=== PATIENT | female | born 1970 | race Caucasian/White ===

== ENCOUNTER 2017-09-26 13:43 | Inpatient (IN) | payer OTHER ==
[~2017-09-26] VITALS: Ht 149.9 cm; Wt 70.5 kg
[~2017-09-26 13:43] MED LIST: LIDOCAINE 1% 10 MG/ML, 20 ML MDV INJ ONE; LR 1,000 ML IV.SOLN IV ONE; MIDAZOLAM HCL 5 MG/5 ML VIAL IVP ONE; NS IRRIG SOLN 1000 ML IR ONE; PROPOFOL 200MG/ 20ML VIAL (DIPRIVAN) IV ONE
[2017-09-26 13:54] VITALS: BP_SYST 128
[2017-09-26] MEDS ORDERED: IOHEXOL 100 ML IV ONE (14:44)
[2017-09-26 14:55] LABS: BILIRUBIN,URINE NEGATIVE (NEGATIVE); BLOOD, URINE NEGATIVE (NEGATIVE); CLARITY/URINE CLEAR (CLEAR); COLOR,URINE YELLOW (YELLOW); GLUCOSE,URINE NEGATIVE (NEGATIVE); KETONES,URINE NEGATIVE (NEGATIVE); LEUKOCYTE ESTERASE ,URINE NEGATIVE (NEGATIVE); NITRITE, URINE NEGATIVE (NEGATIVE); PROTEIN URINE NEGATIVE (NEGATIVE); UROBILINOGEN,URINE 0.2 (0.2-1.0)
[2017-09-26 15:08] LABS: BASOPHILS % (AUTO) 0.5 % (0.0-2.0); EOSINOPHILS # (AUTO) 0.2 K/uL (0.0-0.4); EOSINOPHILS % (AUTO) 2.5 % (0.0-4.0); HEMATOCRIT 39.2 % (36-48); HEMOGLOBIN 12.9 g/dL (12.0-16.0); LYMPHOCYTES # (AUTO) 2.6 K/uL (1.0-5.5); LYMPHOCYTES % (AUTO) 28.1 % (20.5-51.5); MEAN CORPUSCULAR HEMOGLOBIN 29 pg (27-31); MEAN CORPUSCULAR HGB CONC 33 % (32-36); MEAN CORPUSCULAR VOLUME 88 fL (79.0-98.0); MONOCYTES # (AUTO) 0.7 K/uL (0.0-1.0); MONOCYTES % (AUTO) 7.4 % (1.7-9.3); NEUTROPHILS # (AUTO) 5.9 K/uL (1.8-7.7); NEUTROPHILS % (AUTO) 61.5 % (40.0-70.0); PLATELET COUNT (AUTO) 398 K/uL (130-430); RED BLOOD CELL COUNT(AUTO) 4.46 MIL/uL (4.2-6.2); RED CELL DISTRIBUTION WIDTH 14.5 % (9.0-15.0); WHITE BLOOD COUNT (AUTO) 9.4 K/uL (4.8-10.8)
[2017-09-26 15:11] LABS: CALCIUM 8.7 mg/dL (8.4-11.0); CREATININE 0.67 mg/dL (0.55-1.30); POTASSIUM 4.3 mmol/L (3.5-5.1)
[2017-09-26 15:14] LABS: ALBUMIN 3.5 g/dL (3.4-4.8); TOTAL BILIRUBIN 0.4 mg/dL (0.0-1.0)
[2017-09-26] MEDS ORDERED: NS 1000 ML IV.SOLN IV ONE (15:30)
[2017-09-26] MEDS ORDERED: PIPERACILLIN/TAZO 3.38 GM in D5W 50 ML IV ONE (15:30)
[2017-09-26] MEDS ORDERED: VANCOMYCIN HCL 1,000 MG in D5W 250 ML IV ONE (15:30)
[2017-09-26 15:31] LABS: INR 0.9 (0.8-1.2)
[2017-09-26] MEDS ORDERED: PIPERACILLIN/TAZOBACTAM 3.375 GM/VIAL (ZOSYN) IV ONE (15:42)
[2017-09-26] MEDS ORDERED: TRAM50TA92 PO (15:48)
[2017-09-26] MEDS ORDERED: VANCOMYCIN HCL 1000 MG/VIAL IV ONE (16:19)
[2017-09-26] MEDS ORDERED: KETOROLAC TROMETHAMINE 15 MG VIAL IVP ONE (16:30)
[2017-09-26 20:00] VITALS: BP_SYST 111
[2017-09-26] MEDS ORDERED: IBUPROFEN 600 MG TABLET PO PRN (22:00)
[2017-09-26] MEDS ORDERED: ACETAMINOPHEN 500 MG TABLET PO PRN (22:00)
[2017-09-26] MEDS ORDERED: cefTRIAXone 1 GM VIAL ONE (22:29)
[2017-09-26] MEDS: cefTRIAXone 1 GM in D5W 50 ML IV SCH (22:48)
[2017-09-27 00:19] VITALS: BP_SYST 103
[2017-09-27 07:08] LABS: BASOPHILS # (AUTO) 0.1 K/uL (0.0-0.2); BASOPHILS % (AUTO) 0.6 % (0.0-2.0); EOSINOPHILS # (AUTO) 0.3 K/uL (0.0-0.4); EOSINOPHILS % (AUTO) 3.3 % (0.0-4.0); HEMATOCRIT 37.5 % (36-48); HEMOGLOBIN 12.6 g/dL (12.0-16.0); LYMPHOCYTES # (AUTO) 2.2 K/uL (1.0-5.5); LYMPHOCYTES % (AUTO) 22.6 % (20.5-51.5); MEAN CORPUSCULAR HEMOGLOBIN 30 pg (27-31); MEAN CORPUSCULAR HGB CONC 34 % (32-36); MEAN CORPUSCULAR VOLUME 89 fL (79.0-98.0); MONOCYTES # (AUTO) 0.6 K/uL (0.0-1.0); MONOCYTES % (AUTO) 5.8 % (1.7-9.3); NEUTROPHILS # (AUTO) 6.5 K/uL (1.8-7.7); NEUTROPHILS % (AUTO) 67.7 % (40.0-70.0); PLATELET COUNT (AUTO) 350 K/uL (130-430); RED BLOOD CELL COUNT(AUTO) 4.24 MIL/uL (4.2-6.2); RED CELL DISTRIBUTION WIDTH 14.3 % (9.0-15.0); WHITE BLOOD COUNT (AUTO) 9.7 K/uL (4.8-10.8)
[2017-09-27 07:26] LABS: CALCIUM 7.9 mg/dL (8.4-11.0); CREATININE 0.61 mg/dL (0.55-1.30); POTASSIUM 4.2 mmol/L (3.5-5.1)
[2017-09-27 08:00] VITALS: BP_SYST 98
[2017-09-27 08:00] LABS: ALBUMIN 2.9 g/dL (3.4-4.8); TOTAL BILIRUBIN 0.2 mg/dL (0.0-1.0)
[2017-09-27] MEDS: FAMOTIDINE 20 MG TABLET PO SCH (09:36)
[2017-09-27] MEDS: PEG 400/HYPROMELLOSE/GLYCERIN 15 ML DROPS OP SCH ×4 (09:37→20:14)
[2017-09-27 16:00] VITALS: BP_SYST 95
[2017-09-27 20:00] VITALS: BP_SYST 112
[2017-09-27] MEDS: BACITRACIN OP SCH (20:15)
[2017-09-27] MEDS: POLYMYXIN B OP SCH (20:15)
[2017-09-27] MEDS: cefTRIAXone 1 GM in D5W 50 ML IV SCH (20:22)
[2017-09-28 00:37] VITALS: BP_SYST 106
[2017-09-28 08:18] VITALS: BP_SYST 105
[2017-09-28] MEDS: PEG 400/HYPROMELLOSE/GLYCERIN 15 ML DROPS OP SCH ×4 (08:21→21:12)
[2017-09-28] MEDS: FAMOTIDINE 20 MG TABLET PO SCH (09:00)
[2017-09-28] MEDS ORDERED: LR 1,000 ML IV SCH (10:28)
[2017-09-28] MEDS ORDERED: HYDROmorphone 1 MG INJ. 1 MG/ML AMPUL IVP PRN (10:30)
[2017-09-28] MEDS ORDERED: MEPERIDINE HCL/PF 25 MG/ML DISP.SYRIN IVP PRN (10:30)
[2017-09-28] MEDS ORDERED: HYDROmorphone 2 MG/ML VIAL IVP PRN ×2 (10:30)
[2017-09-28] MEDS: traMADol HCL HCL 50 MG TABLET (ULTRAM) PO PRN (14:12)
[2017-09-28 14:25] VITALS: BP_SYST 112
[2017-09-28 19:00] VITALS: BP_SYST 113
[2017-09-28 20:00] VITALS: BP_SYST 113
[2017-09-28] MEDS: POLYMYXIN B OP SCH (21:13)
[2017-09-28] MEDS: BACITRACIN OP SCH (21:13)
[2017-09-28] MEDS: cefTRIAXone 1 GM in D5W 50 ML IV SCH (21:20)
[2017-09-29 00:54] VITALS: BP_SYST 113
[2017-09-29] MEDS: traMADol HCL HCL 50 MG TABLET (ULTRAM) PO PRN (06:04)
[2017-09-29 07:06] LABS: BASOPHILS % (AUTO) 0.3 % (0.0-2.0); EOSINOPHILS # (AUTO) 0.2 K/uL (0.0-0.4); EOSINOPHILS % (AUTO) 2.4 % (0.0-4.0); HEMATOCRIT 39.5 % (36-48); HEMOGLOBIN 12.8 g/dL (12.0-16.0); LYMPHOCYTES # (AUTO) 2.3 K/uL (1.0-5.5); LYMPHOCYTES % (AUTO) 26.6 % (20.5-51.5); MEAN CORPUSCULAR HEMOGLOBIN 29 pg (27-31); MEAN CORPUSCULAR HGB CONC 32 % (32-36); MEAN CORPUSCULAR VOLUME 88 fL (79.0-98.0); MONOCYTES # (AUTO) 0.5 K/uL (0.0-1.0); MONOCYTES % (AUTO) 6.4 % (1.7-9.3); NEUTROPHILS # (AUTO) 5.6 K/uL (1.8-7.7); NEUTROPHILS % (AUTO) 64.3 % (40.0-70.0); PLATELET COUNT (AUTO) 392 K/uL (130-430); RED BLOOD CELL COUNT(AUTO) 4.47 MIL/uL (4.2-6.2); RED CELL DISTRIBUTION WIDTH 14.4 % (9.0-15.0); WHITE BLOOD COUNT (AUTO) 8.6 K/uL (4.8-10.8)
[2017-09-29 07:28] LABS: ALBUMIN 2.8 g/dL (3.4-4.8); CALCIUM 8.3 mg/dL (8.4-11.0); CREATININE 0.57 mg/dL (0.55-1.30); POTASSIUM 3.9 mmol/L (3.5-5.1); TOTAL BILIRUBIN 0.2 mg/dL (0.0-1.0)
[2017-09-29 08:00] VITALS: BP_SYST 110
[2017-09-29] MEDS: FAMOTIDINE 20 MG TABLET PO SCH (09:01)
[2017-09-29] MEDS: PEG 400/HYPROMELLOSE/GLYCERIN 15 ML DROPS OP SCH (09:02)
[2017-09-29 11:04] VITALS: BP_SYST 99
[2017-09-29 13:32] VITALS: BP_SYST 99
[2017-09-29 15:04] VITALS: BP_SYST 106
== END 2017-09-29 15:45 | disposition home or self-care (01) | DRG 908 ==
LOC: SED 13:43 → SMU 17:11
PROVIDERS: ADMIT Internal Medicine; ATTEND Internal Medicine
PROC: 0W9F3ZZ Drainage of Abdominal Wall, Percutaneous Approach (ICD-10-PCS; 2017-09-27)
PROC: 0J980ZZ Drainage of Abdomen Subcutaneous Tissue and Fascia, Open Approach (ICD-10-PCS; principal; 2017-09-28 10:30)
DX: L76.34 Postprocedural seroma of skin and subcutaneous tissue following other procedure (principal); L02.211 Cutaneous abscess of abdominal wall; H11.32 Conjunctival hemorrhage, left eye; Y83.8 Other surgical procedures as the cause of abnormal reaction of the patient, or of later complication, without mention of misadventure at the time of the procedure; Y92.89 Other specified places as the place of occurrence of the external cause
CPT/HCPCS: 36415; 76942-TC; 80053; 81003; 83605; 83690-TC; 84703; 85025; 85610-TC; 85730-TC; 87040-TC; 87070-TC; 87075-TC; 87081; 87086; 87186-TC; 99285; C1729; J0696; J1170; J1885; J2001; J2250; J2543; J2704; J3370; J7030; J7060; J7120; Q9967

== ENCOUNTER 2018-01-14 07:00 | Day surgery (SDC) | payer OTHER ==
[~2018-01-14] VITALS: Ht 149.9 cm; Wt 63.5 kg
[~2018-01-14 07:00] MED LIST changes: -LIDOCAINE 1% 10 MG/ML, 20 ML MDV INJ ONE; -LR 1,000 ML IV.SOLN IV ONE; -MIDAZOLAM HCL 5 MG/5 ML VIAL IVP ONE; -NS IRRIG SOLN 1000 ML IR ONE; -PROPOFOL 200MG/ 20ML VIAL (DIPRIVAN) IV ONE; +TRAM50TA92 PO
[2018-01-14 07:05] VITALS: BP_SYST 139
[2018-01-14] MEDS ORDERED: CLIN300C11 PO (07:54)
[2018-01-14] MEDS ORDERED: NACL 0.9% 1,000 ML IV ONE (08:15)
[2018-01-14 08:21] LABS: BILIRUBIN,URINE NEGATIVE (NEGATIVE); BLOOD, URINE NEGATIVE (NEGATIVE); CLARITY/URINE CLEAR (CLEAR); COLOR,URINE YELLOW (YELLOW); GLUCOSE,URINE NEGATIVE (NEGATIVE); KETONES,URINE NEGATIVE (NEGATIVE); LEUKOCYTE ESTERASE ,URINE NEGATIVE (NEGATIVE); NITRITE, URINE NEGATIVE (NEGATIVE); PH,URINE 5.5 (5.0-8.0); PROTEIN URINE NEGATIVE (NEGATIVE); UROBILINOGEN,URINE 0.2 (0.2-1.0)
[2018-01-14 09:02] LABS: BASOPHILS # (AUTO) 0.1 K/uL (0.0-0.2); BASOPHILS % (AUTO) 0.7 % (0.0-2.0); EOSINOPHILS # (AUTO) 0.3 K/uL (0.0-0.4); EOSINOPHILS % (AUTO) 2.3 % (0.0-4.0); HEMATOCRIT 42.4 % (36-48); HEMOGLOBIN 13.6 g/dL (12.0-16.0); LYMPHOCYTES # (AUTO) 2.2 K/uL (1.0-5.5); LYMPHOCYTES % (AUTO) 19.8 % (20.5-51.5); MEAN CORPUSCULAR HEMOGLOBIN 29 pg (27-31); MEAN CORPUSCULAR HGB CONC 32 % (32-36); MEAN CORPUSCULAR VOLUME 90 fL (79.0-98.0); MONOCYTES # (AUTO) 0.7 K/uL (0.0-1.0); MONOCYTES % (AUTO) 6.2 % (1.7-9.3); NEUTROPHILS # (AUTO) 7.7 K/uL (1.8-7.7); PLATELET COUNT (AUTO) 502 K/uL (130-430); RED BLOOD CELL COUNT(AUTO) 4.74 MIL/uL (4.2-6.2); RED CELL DISTRIBUTION WIDTH 14.2 % (9.0-15.0)
[2018-01-14 09:04] LABS: CALCIUM 8.4 mg/dL (8.4-11.0); CREATININE 0.61 mg/dL (0.55-1.30); POTASSIUM 4.9 mmol/L (3.5-5.1)
[2018-01-14 09:10] LABS: INR 0.9 (0.8-1.2); PROTHROMBIN TIME 9.4 SECS (9.5-12.5)
[2018-01-14 09:20] LABS: ALBUMIN 3.2 g/dL (3.4-4.8); TOTAL BILIRUBIN 0.2 mg/dL (0.0-1.0)
[2018-01-14] MEDS ORDERED: CLINDAMYCIN 900 mg/50mL D5W 50 ML IV ONE (10:45)
[2018-01-14] MEDS ORDERED: LR 1,000 ML IV.SOLN IV ONE (13:45)
[2018-01-14] MEDS ORDERED: fentaNYL CITRATE/PF 100 MCG/2 ML AMP IVP ONE (13:45)
[2018-01-14] MEDS ORDERED: NS IRRIG SOLN 1000 ML IR ONE (13:45)
[2018-01-14] MEDS ORDERED: KETOROLAC TROMETHAMINE 30 MG VIAL IVP ONE (13:45)
[2018-01-14] MEDS ORDERED: ROCURONIUM BROMIDE 10 MG/ML (ZEMURON) IV ONE (13:45)
[2018-01-14] MEDS ORDERED: ONDANSETRON HCL 4 MG/2 ML VIAL IVP ONE (13:45)
[2018-01-14] MEDS ORDERED: PROPOFOL 200MG/ 20ML VIAL (DIPRIVAN) IV ONE (13:45)
[2018-01-14] MEDS ORDERED: SEVOFLURANE 15 MIN GAS INH ONE (13:45)
[2018-01-14] MEDS ORDERED: MIDAZOLAM HCL 5 MG/5 ML VIAL IVP ONE (13:45)
[2018-01-14] MEDS ORDERED: DEXAMETHASONE SOD PHOSPHATE 4 MG/ML VIAL IVP ONE (13:45)
[2018-01-14] MEDS ORDERED: HYDROmorphone 1 MG INJ. 1 MG/ML AMPUL IVP PRN (14:15)
[2018-01-14] MEDS ORDERED: LR 1,000 ML IV SCH (14:15)
[2018-01-14] MEDS ORDERED: MEPERIDINE HCL/PF 25 MG/ML DISP.SYRIN IVP PRN (14:15)
[2018-01-14] MEDS ORDERED: HYDROmorphone 2 MG/ML VIAL IVP PRN ×2 (14:15)
[2018-01-14 17:44] VITALS: BP_SYST 109
== END 2018-01-14 18:25 | disposition home or self-care (01) ==
LOC: SED 07:00 → UNDOADMOB 13:30 → SMU 13:30 → SDS 13:30 → SMU 13:43 → SDS 18:25 → UNDODISOB 18:25 → SDS 01-15 18:07
PROVIDERS: ATTEND Specialist
DX: T81.89XA Other complications of procedures, not elsewhere classified, initial encounter (principal); Z98.890 Other specified postprocedural states
CPT/HCPCS: 10060; 36415; 71045; 74176; 80053; 81003; 83605; 85025; 85610; 85730; 87040; 87070 ×2; 87075; 87086; 88304; 93005; 94010; J1100; J1885; J2250; J2405; J2704; J3010; J3490; J7030; J7120; 88305; G0378

== ENCOUNTER 2018-01-15 14:20 | Emergency (ER) | payer OTHER ==
[~2018-01-15] VITALS: Ht 149.9 cm; Wt 63.5 kg
[~2018-01-15 14:20] MED LIST changes: +CLIN300C11 PO; -TRAM50TA92 PO
[2018-01-15 14:24] VITALS: BP_SYST 148
[2018-01-15 15:00] VITALS: BP_SYST 148
== END 2018-01-15 15:14 | disposition home or self-care (01) ==
LOC: SED 14:20
DX: Z48.01 Encounter for change or removal of surgical wound dressing (principal); R03.0 Elevated blood-pressure reading, without diagnosis of hypertension
CPT/HCPCS: 99282

== ENCOUNTER 2019-03-14 21:02 | Emergency (ER) | payer MEDICAID, OTHER ==
[~2019-03-14] VITALS: Ht 149.9 cm; Wt 68.0 kg
--- NOTE | 2019-03-14 21:15 | NUR ---
Patient to ER bed 6 to gown for evaluation. Side rails up.
[2019-03-14 21:30] VITALS: BP_SYST 130
--- NOTE | 2019-03-14 21:30 | NUR ---
ER at bedside examining patient.
--- NOTE | 2019-03-14 21:45 | NUR ---
Pt came to the ED for upper ABD pain with tenderness. Reports she feels a bump. States pain is 6/10. Denies n/v/d or fever. denies SOB or chest pain. No other complaints/injuries noted. Will cont. to monitor.
[2019-03-14] MEDS ORDERED: METOCLOPRAMIDE HCL 10 MG TABLET PO ONE (22:00)
[2019-03-14] MEDS ORDERED: PANTOPRAZOLE SODIUM 40 MG TAB PO ONE (22:00)
--- NOTE | 2019-03-14 22:00 | NUR ---
Pt resting comfortably in bed, no signs of acute distress. Will cont .to monitor.
[2019-03-14 22:14] LABS: BASOPHILS % (AUTO) 0.6 % (0.0-2.0); EOSINOPHILS # (AUTO) 0.2 K/uL (0.0-0.4); EOSINOPHILS % (AUTO) 3.2 % (0.0-4.0); HEMOGLOBIN 13.4 g/dL (12.0-16.0); LYMPHOCYTES # (AUTO) 2.6 K/uL (1.0-5.5); LYMPHOCYTES % (AUTO) 37.5 % (20.5-51.5); MEAN CORPUSCULAR HEMOGLOBIN 32 pg (27-31); MEAN CORPUSCULAR HGB CONC 33 % (32-36); MEAN CORPUSCULAR VOLUME 96 fL (79.0-98.0); MONOCYTES # (AUTO) 0.5 K/uL (0.0-1.0); MONOCYTES % (AUTO) 6.8 % (1.7-9.3); NEUTROPHILS # (AUTO) 3.5 K/uL (1.8-7.7); NEUTROPHILS % (AUTO) 51.9 % (40.0-70.0); PLATELET COUNT (AUTO) 327 K/uL (130-430); RED BLOOD CELL COUNT(AUTO) 4.18 MIL/uL (4.2-6.2); RED CELL DISTRIBUTION WIDTH 13.6 % (9.0-15.0); WHITE BLOOD COUNT (AUTO) 6.8 K/uL (4.8-10.8)
[2019-03-14 22:26] LABS: CALCIUM 8.3 mg/dL (8.4-11.0); CREATININE 0.7 mg/dL (0.55-1.30); POTASSIUM 4.2 mmol/L (3.5-5.1)
[2019-03-14 22:31] LABS: ALBUMIN 3.4 g/dL (3.4-4.8); TOTAL BILIRUBIN 0.2 mg/dL (0.0-1.0)
--- NOTE | 2019-03-14 23:00 | NUR ---
Pt resting comfortably in bed, no signs of acute distress. Will cont .to monitor.
--- NOTE | 2019-03-15 | NUR ---
Pt resting comfortably in bed, no signs of acute distress. Will cont .to monitor.
[2019-03-15 00:36] LABS: BILIRUBIN,URINE NEGATIVE (NEGATIVE); BLOOD, URINE NEGATIVE (NEGATIVE); CLARITY/URINE CLEAR (CLEAR); COLOR,URINE YELLOW (YELLOW); GLUCOSE,URINE NEGATIVE (NEGATIVE); KETONES,URINE NEGATIVE (NEGATIVE); LEUKOCYTE ESTERASE ,URINE NEGATIVE (NEGATIVE); NITRITE, URINE NEGATIVE (NEGATIVE); PROTEIN URINE NEGATIVE (NEGATIVE); UROBILINOGEN,URINE 0.2 (0.2-1.0)
[2019-03-15 00:41] LABS: BARBITURATE, URINE NEGATIVE (NEG <=200); BENZODIAZEPINE, URINE NEGATIVE (NEG <=150); CANNABINOID, URINE NEGATIVE (NEG <=50); COCAINE, URINE NEGATIVE (NEG <=150); METHAMPHETAMINES SCREEN,URINE NEGATIVE (NEG <=500); OPIATE, URINE NEGATIVE (NEG <=100); PHENCYCLIDINE SCREEN,URINE NEGATIVE (NEG <=25); UR TRICYCLIC ANTIDEPRESSANTS NEGATIVE (NEG <=300); URINE AMPHETAMINE POSITIVE (NEG <=500); URINE METHADONE NEGATIVE (NEG <=200); URINE OXYCODONE SCREEN NEGATIVE (NEG <=100); URINE PROPOXYPHENE SCREEN NEGATIVE (NEG <=300)
[2019-03-15 00:48] LABS: HCG,QUAL RESULT NEGATIVE (NEGATIVE)
[2019-03-15 01:15] VITALS: BP_SYST 128
--- NOTE | 2019-03-15 01:15 | NUR ---
Patient given written and verbal discharge instructions and verbalizes understanding. ER MD discussed with patient the results and treatment provided. Patient in stable condition. ID arm band removed. Rx of Zofran and Protonix given. Patient educated on pain management and to follow up with PMD. Pain Scale 0/10. Opportunity for questions provided and answered.
== END 2019-03-15 01:15 | disposition home or self-care (01) ==
LOC: SED 21:02
DX: N83.201 Unspecified ovarian cyst, right side (principal); K27.9 Peptic ulcer, site unspecified, unspecified as acute or chronic, without hemorrhage or perforation; D21.9 Benign neoplasm of connective and other soft tissue, unspecified; Z87.19 Personal history of other diseases of the digestive system
CPT/HCPCS: 36415; 80053; 80307; 81003; 81025; 83690-TC; 84703; 85025; 99284; J8597